=== PATIENT | female | born 1935 | race Caucasian/White ===

== ENCOUNTER 2016-05-27 15:43 | Emergency (ER) | payer MEDICARE, OTHER ==
[~2016-05-27] VITALS: Ht 172.7 cm; Wt 91.0 kg
[~2016-05-27 15:43] MED LIST: ESOM1CAP6 PO; SERT50 PO
[2016-05-27 16:03] VITALS: BP 154/94; PULSE 91; RESP 16; TEMP 97.9; O2SAT 97
[2016-05-27] MEDS ORDERED: SODIUM CHLOR 0.9% 1000 ML INJ 1,000 ML IV SCH ×2 (16:20)
[2016-05-27] MEDS ORDERED: SODIUM CHLORIDE 0.9% FLUSH 5 ML FLUSH IVF PRN (16:30)
[2016-05-27] MEDS ORDERED: ONDANSETRON HCL 4 MG/2 ML VIAL IVP ONE (16:30)
[2016-05-27] MEDS ORDERED: MORPHINE SULFATE 4 MG/ML INJ IV PUSH ONE ×2 (16:30→18:15)
--- NOTE | 2016-05-27 16:35 | PD ---
HPI Chief Complaint: GI Complaint Time Seen by Provider: 16:08 Travel History International Travel<30 days: No Contact w/Intl Traveler<30days: No Traveled to known affect area: No History of Present Illness HPI The patient is a 81-year-old female who presents emergency department for nausea, vomiting, and abdominal pain. The patient states her symptoms started several hours prior to arrival. The patient states she has a history of similar symptoms in the past secondary to small bowel obstructions, secondary to adhesions. Patient has a history of previous abdominal surgeries including removal of ovaries, partial colectomy, and 4 separate surgeries for lysis of adhesions. The patient states her last surgery for lysis of adhesions was in 2010 [facility]. The patient's other previous surgeries were in [place]. The patient does not have a local surgeon. The patient states her last bowel movement was yesterday, small, and irregular. The patient has not passed any gas today. The patient has had several episodes of belching with her nausea and vomiting. Symptoms are moderate, possibly exacerbated by small bowel obstruction, and there are no current alleviating factors. PFSH Past Medical History Arthritis: Yes Asthma: No Autoimmune Disease: No Blood Disorders: No Anxiety: No Depression: Yes Heart Rhythm Problems: No Cancer: Yes (MINOR ON LIP) Cardiovascular Problems: Yes High Cholesterol: Yes Chemotherapy: No Chest Pain: No Congestive Heart Failure: No COPD: No Cerebrovascular Accident: No Diabetes: No Diminished Hearing: No Endocrine: No Gastrointestinal Disorders: Yes (ADHESIONS) GERD: Yes Glaucoma: No Genitourinary: No Headaches: No Hepatitis: No Hiatal Hernia: No Hypertension: Yes Immune Disorder: No Implanted Vascular Access Dvce: Yes Kidney Stones: No Musculoskeletal: Yes Neurologic: No Psychiatric: Yes Reproductive: No Respiratory: Yes Migraines: No Myocardial Infarction: No Radiation Therapy: No Renal Failure: No Seizures: No Sickle Cell Disease: No Sleep Apnea: No Thyroid Disease: No Ulcer: No Past Surgical History Abdominal Surgery: Yes (ADHESIONS REPAIRS X 3 IN 1987,1989 AND 2000) AICD: No Appendectomy: No Arteriovenous Shunt: No Body Medical Devices: LEFT HIP BLADDER STIMULATOR Cardiac Surgery: No Cholecystectomy: No Ear Surgery: No Endocrine Surgery: No Eye Surgery: No Genitourinary Surgery: No Gynecologic Surgery: Yes (HAD FISTUAL REAPIRED IN 2000) Hysterectomy: Yes (1985) Insulin Pump: No Joint Replacement: No Oral Surgery: No Pacemaker: No Thoracic Surgery: No Social History Alcohol Use: Yes (2/ DAY) Tobacco Use: No Substance Use: No Allergies-Medications (Allergen,Severity, Reaction): Coded Allergies: No Known Allergies (Verified , 05/27/16) Reported Meds & Prescriptions Reported Meds & Active Scripts Active Zofran Odt (Ondansetron Odt) 4 Mg Tab 4 Mg SL Q6HR PRN [place] (Hydrocodone-Acetaminophen) 5-325 mg Tab 1 Tab PO Q6H PRN Review of Systems Except as stated in HPI: all other systems reviewed are Neg General / Constitutional: No: Fever Cardiovascular: No: Chest Pain or Discomfort Respiratory: No: Shortness of Breath Gastrointestinal: Positive: Nausea, Vomiting, Abdominal Pain, Changes in Bowel Habits Genitourinary: No: Dysuria Musculoskeletal: No: Weakness Neurologic: No: Weakness Physical Exam Narrative GENERAL: Awake, alert, pleasant 81-year-old female who appears her stated age and is in no acute respiratory distress. SKIN: Warm and dry. HEAD: Atraumatic. Normocephalic. EYES: Pupils equal and round. No scleral icterus. No injection or drainage. ENT: No nasal bleeding or discharge. Slightly dry mucous membranes. NECK: Trachea midline. No JVD. CARDIOVASCULAR: Regular rate and rhythm. No murmur appreciated. Heart rate in the 90s. RESPIRATORY: No accessory muscle use. Clear to auscultation. Breath sounds equal bilaterally. GASTROINTESTINAL: Abdomen soft, diffuse tenderness, no obvious tympany. Well- healed midline surgical scar and lower abdominal transverse scar. MUSCULOSKELETAL: No obvious deformities. No clubbing. No cyanosis. No edema. NEUROLOGICAL: Awake and alert. No obvious cranial nerve deficits. Motor grossly within normal limits. Normal speech. PSYCHIATRIC: Appropriate mood and affect; insight and judgment normal. Data Data Last Documented VS Vital Signs Date Time Temp Pulse Resp B/P Pulse Ox O2 Delivery O2 Flow Rate FiO2 05/27/16 19:20 18 05/27/16 18:48 72 164/76 95 Room Air 05/27/16 16:03 97.9 Orders Complete Blood Count With Diff (05/27/16 16:20) Comprehensive Metabolic Panel (05/27/16 16:20) Lipase (05/27/16 16:20) Lactic Acid (05/27/16 16:20) Urinalysis - C+S If Indicated (05/27/16 16:20) Ct Abd/Pel W/O Iv Contrast (05/27/16 16:20) Iv Access Insert/Monitor (05/27/16 16:20) Ecg Monitoring (05/27/16 16:20) Oximetry (05/27/16 16:20) Morphine Inj (Morphine Inj) (05/27/16 16:30) Ondansetron Inj (Zofran Inj) (05/27/16 16:30) Sodium Chlor 0.9% 1000 Ml Inj (Ns 1000 M (05/27/16 16:20) Sodium Chlor 0.9% 1000 Ml Inj (Ns 1000 M (05/27/16 16:20) Sodium Chloride 0.9% Flush (Ns Flush) (05/27/16 16:30) Morphine Inj (Morphine Inj) (05/27/16 18:15) Ondansetron Inj (Zofran Inj) (05/27/16 18:15) Labs Laboratory Tests Test 05/27/16 05/27/16 16:55 17:25 White Blood Count 9.8 TH/MM3 Red Blood Count 5.10 MIL/MM3 Hemoglobin 14.4 GM/DL Hematocrit 43.7 % Mean Corpuscular Volume 85.7 FL Mean Corpuscular Hemoglobin 28.2 PG Mean Corpuscular Hemoglobin 32.9 % Concent Red Cell Distribution Width 12.8 % Platelet Count 228 TH/MM3 Mean Platelet Volume 9.4 FL Neutrophils (%) (Auto) 79.0 % Lymphocytes (%) (Auto) 13.0 % Monocytes (%) (Auto) 5.4 % Eosinophils (%) (Auto) 1.6 % Basophils (%) (Auto) 1.0 % Neutrophils # (Auto) 7.7 TH/MM3 Lymphocytes # (Auto) 1.3 TH/MM3 Monocytes # (Auto) 0.5 TH/MM3 Eosinophils # (Auto) 0.2 TH/MM3 Basophils # (Auto) 0.1 TH/MM3 CBC Comment DIFF FINAL Differential Comment Sodium Level 142 MEQ/L Potassium Level 4.1 MEQ/L Chloride Level 108 MEQ/L Carbon Dioxide Level 25.1 MEQ/L Anion Gap 9 MEQ/L Blood Urea Nitrogen 18 MG/DL Creatinine 0.94 MG/DL Estimat Glomerular Filtration 57 ML/MIN Rate Random Glucose 104 MG/DL Lactic Acid Level 1.0 mmol/L Calcium Level 9.2 MG/DL Total Bilirubin 0.4 MG/DL Aspartate Amino Transf 15 U/L (AST/SGOT) Alanine Aminotransferase 17 U/L (ALT/SGPT) Alkaline Phosphatase 80 U/L Total Protein 7.6 GM/DL Albumin 3.4 GM/DL Lipase 126 U/L Urine Collection Type CATH Urine Color YELLOW Urine Turbidity SLIGHT Urine pH 6.0 Urine Specific [place] 1.022 Urine Protein TRACE mg/dL Urine Glucose (UA) NEG mg/dL Urine Ketones TRACE mg/dL Urine Occult Blood NEG Urine Nitrite NEG Urine Bilirubin NEG Urine Leukocyte Esterase NEG Urine RBC 0-3 /hpf Urine Squamous Epithelial 0-5 /hpf Cells Urine Transitional Epithelial 0-5 /hpf Cells Urine Amorphous Sediment MOD Microscopic Urinalysis Comment CATH-CULT NOT IND Urine Collection Time 1725 MDM Medical Decision Making Medical Screen Exam Complete: Yes Emergency Medical Condition: Yes Medical Record Reviewed: Yes Interpretation(s) CT of the abdomen and pelvis reveals nonspecific bowel gas pattern. No etiology for patient's nausea and abdominal pain. Laboratory Tests Test 05/27/16 05/27/16 16:55 17:25 White Blood Count 9.8 TH/MM3 Red Blood Count 5.10 MIL/MM3 Hemoglobin 14.4 GM/DL Hematocrit 43.7 % Mean Corpuscular Volume 85.7 FL Mean Corpuscular Hemoglobin 28.2 PG Mean Corpuscular Hemoglobin 32.9 % Concent Red Cell Distribution Width 12.8 % Platelet Count 228 TH/MM3 Mean Platelet Volume 9.4 FL Neutrophils (%) (Auto) 79.0 % Lymphocytes (%) (Auto) 13.0 % Monocytes (%) (Auto) 5.4 % Eosinophils (%) (Auto) 1.6 % Basophils (%) (Auto) 1.0 % Neutrophils # (Auto) 7.7 TH/MM3 Lymphocytes # (Auto) 1.3 TH/MM3 Monocytes # (Auto) 0.5 TH/MM3 Eosinophils # (Auto) 0.2 TH/MM3 Basophils # (Auto) 0.1 TH/MM3 CBC Comment DIFF FINAL Differential Comment Sodium Level 142 MEQ/L Potassium Level 4.1 MEQ/L Chloride Level 108 MEQ/L Carbon Dioxide Level 25.1 MEQ/L Anion Gap 9 MEQ/L Blood Urea Nitrogen 18 MG/DL Creatinine 0.94 MG/DL Estimat Glomerular Filtration 57 ML/MIN Rate Random Glucose 104 MG/DL Lactic Acid Level 1.0 mmol/L Calcium Level 9.2 MG/DL Total Bilirubin 0.4 MG/DL Aspartate Amino Transf 15 U/L (AST/SGOT) Alanine Aminotransferase 17 U/L (ALT/SGPT) Alkaline Phosphatase 80 U/L Total Protein 7.6 GM/DL Albumin 3.4 GM/DL Lipase 126 U/L Urine Collection Type CATH Urine Color YELLOW Urine Turbidity SLIGHT Urine pH 6.0 Urine Specific [place] 1.022 Urine Protein TRACE mg/dL Urine Glucose (UA) NEG mg/dL Urine Ketones TRACE mg/dL Urine Occult Blood NEG Urine Nitrite NEG Urine Bilirubin NEG Urine Leukocyte Esterase NEG Urine RBC 0-3 /hpf Urine Squamous Epithelial 0-5 /hpf Cells Urine Transitional Epithelial 0-5 /hpf Cells Urine Amorphous Sediment MOD Microscopic Urinalysis Comment CATH-CULT NOT IND Urine Collection Time 1725 Differential Diagnosis Differential diagnosis includes small bowel obstruction, gastritis, constipation , ileus, pancreatitis, pyelonephritis, dehydration, adhesions. Narrative Course IV was established, labs are drawn and sent, and the patient was placed on cardiac telemetry monitoring and continuous pulse oximetry monitoring. The patient was administered morphine, Zofran, and IV fluids. CT of the abdomen and pelvis was ordered to evaluate for obstruction. The patient's white count is unremarkable, lactic acid is normal, and UA reveals [address] of the abdomen and pelvis reveals no acute findings, however, does mention possible fibroid uterus. The patient thinks she had a previous hysterectomy. However, I do not believe this is the source of the patient's symptoms. I will have the patient provided a copy of her CT results so she can discuss him on an outpatient basis with her physician and her medical records. The patient has no tachycardia, is mildly hypertensive and continues to have mild pain. Therefore, the patient was administered a second dose of pain medications. I did advise the patient that if her symptoms persist she may need to return if she could be early in the course of a small bowel obstruction, however, there are no air-fluid levels or suggestion of SBO on CT. She is advised to return if symptoms worsen or progress and do not improve in the next 24 hours. Diagnosis Primary Impression: Abdominal pain Qualified Code: R10.84 - Generalized abdominal pain Patient Instructions: General Instructions Additional Instructions: Medications as directed. Follow-up with your primary physician. Return if symptoms worsen or progress. Med/Other Pt SpecificInfo: Prescription(s) given Scripts Ondansetron Odt (Zofran Odt)4 Mg Tab4 Mg SL Q6HR PRN (Nausea/Vomiting) #7 TAB Ref 0 Prov:Campbell Lopez MD 05/27/16 Hydrocodone-Acetaminophen ([place])5-325 mg Tab1 Tab PO Q6H PRN (PAIN) #15 TAB Ref 0 Prov:Campbell Lopez MD 05/27/16 Disposition: 01 DISCHARGE HOME Condition: Stable Campbell Lopez MD May 27, 2016 16:35
--- NOTE | 2016-05-27 16:59 | RADHPO ---
EXAM DATE/TIME: 05/27/2016 16:30 This report includes an Addendum and supersedes previous reports for this exam. [facility] COMPARISON: No previous studies available for comparison. INDICATIONS : Nausea and vomiting with lower abdomen pain today. ORAL CONTRAST: No oral contrast ingested. RADIATION DOSE: 19.29 CTDIvol (mGy) MEDICAL HISTORY : Hypertension. Gastroesophageal reflux disease. SURGICAL HISTORY : Hysterectomy. lysis of adhesions ENCOUNTER: Initial ACUITY: 1 day PAIN SCALE: 7/10 LOCATION: Bilateral lower quadrant TECHNIQUE: Volumetric scanning of the abdomen and pelvis was performed. Using automated exposure control and ad justment of the mA and/or kV according to patient size, radiation dose was kept as low as reasonably achievable to obtain optimal diagnostic quality images. FINDINGS: The lung bases are clear. The heart is unremarkable. The liver is free of focal defects. The gallbl adder appears normal. The spleen, pancreas, adrenals are unremarkable. The right kidney is normal. There is mild prominen ce to the left renal pelvis with peripelvic cyst evident. Region of the cecum and terminal ileum are unremarkable. Fibroid uterus is noted. Evidence for a previous surgery is seen in the sigmoid colon. There is no free air or obstruction. There is no free fluid. Review of bone windows reveals degenerative change s in the lower lumbar spine. Spinal stimulator is evident. CONCLUSION: Non-specific bowel gas pattern. I do not see an etiology for patient's nausea and abdominal pain. Yung Rosado MD FACR on May 27, 2016 at 16:48 Board Certified Radiologist. This report was verified electronically. ADDENDUM: Patient has had hysterectomy. Surgical clips are seen in the pelvis. Yung Rosado MD FACR on May 28, 2016 at 10:41 Board Certified Radiologist. This report was verified electronically.
[2016-05-27 17:04] LABS: AUTOMATED NEUTROPHIL # 7.7 TH/MM3 (1.8-7.7); BASOPHIL # 0.1 TH/MM3 (0-0.2); EOSINOPHIL # 0.2 TH/MM3 (0-0.4); EOSINOPHIL % 1.6 % (0.0-4.0); HEMATOCRIT 43.7 % (35.0-46.0); HEMO FLAGS DIFF FINAL; LYMPHOCYTE # 1.3 TH/MM3 (1.0-4.8); MEAN CELL VOLUME 85.7 FL (80.0-100.0); MEAN CORPUSCULAR HEMOGLOBIN 28.2 PG (27.0-34.0); MEAN CORPUSCULAR HGB CONC 32.9 % (32.0-36.0); MONO % 5.4 % (0.0-8.0); PLATELET COUNT 228 TH/MM3 (150-450); RED CELL DISTRIBUTION WIDTH 12.8 % (11.6-17.2); WHITE BLOOD COUNT 9.8 TH/MM3 (4.0-11.0)
[2016-05-27 17:11] LABS: CHLORIDE 108 MEQ/L (98-107); POTASSIUM 4.1 MEQ/L (3.5-5.1); SODIUM (NA) 142 MEQ/L (136-145)
[2016-05-27 17:15] LABS: ANION GAP 9 MEQ/L (5-15); BICARBONATE 25.1 MEQ/L (21.0-32.0); BLOOD UREA NITROGEN 18 MG/DL (7-18)
[2016-05-27 17:18] LABS: ALT (GPT) 17 U/L (10-53); AST (GOT) 15 U/L (15-37); GLOMERULAR FILTRATION RATE 57 ML/MIN (>89)
[2016-05-27 17:20] LABS: TOTAL BILIRUBIN ADULT 0.4 MG/DL (0.2-1.0)
[2016-05-27 17:21] LABS: ALKALINE PHOSPHATASE 80 U/L (45-117)
[2016-05-27 17:30] VITALS: O2SAT 98
[2016-05-27 17:33] VITALS: BP 187/80; PULSE 72; RESP 20; O2SAT 95
[2016-05-27 17:34] LABS: BLOOD, URINE NEG (NEG); GLUCOSE,URINE NEG (NEG); KETONE, URINE TRACE mg/dL (NEG); NITRITE,URINE NEG (NEG)
[2016-05-27 17:39] LABS: METHOD OF COLLECTION CATH; URINE COLOR YELLOW (YELLW/STRAW)
[2016-05-27 17:40] LABS: COMMENT (UR) CATH-CULT NOT IND; COMMENT2 (UR) MUCOUS PRESENT; CULTURE IF INDICATED CATH CULTURE NOT IND; RBC, URINE 0-3 /hpf (0-3); SQUAMOUS EPITHELIAL CELL URINE 0-5 /hpf (0-5); TRANSITIONAL EPI CELLS, URINE 0-5 /hpf
[2016-05-27] MEDS ORDERED: ZOFR4TAB3 SL (18:11)
[2016-05-27] MEDS ORDERED: NORC5TAB PO (18:11)
[2016-05-27] MEDS ORDERED: ONDANSETRON HCL 4 MG/2 ML VIAL IV PUSH ONE (18:15)
[2016-05-27 18:48] VITALS: BP 164/76; PULSE 72; RESP 20; O2SAT 95
[2016-05-27 19:20] VITALS: RESP 18
== END 2016-05-27 19:36 | disposition home or self-care (01) ==
LOC: PHED 15:43
DX: R10.84 Generalized abdominal pain (principal); R11.2 Nausea with vomiting, unspecified; E78.00 Pure hypercholesterolemia, unspecified; I10 Essential (primary) hypertension
CPT/HCPCS: 74176; 80053; 81001; 83605; 83690; 85025; 96361; 96374; 96375; 96376; 99284; J2270; J2405; J7030

== ENCOUNTER 2016-05-28 01:45 | Observation (INO) | payer MEDICARE, OTHER ==
[~2016-05-28] VITALS: Ht 172.7 cm; Wt 90.9 kg
[2016-05-28] VITALS (13 sets, daily range): BP systolic 125–185; BP diastolic 65–87; PULSE 72–86; RESP 16–20; TEMP 96.9–97.8; O2SAT 93–97
[~2016-05-28 01:45] MED LIST changes: +NORC5TAB PO; +ZOFR4TAB3 SL
[2016-05-28] MEDS ORDERED: SODIUM CHLOR 0.9% 1000 ML INJ 1,000 ML IV SCH (02:16)
[2016-05-28] MEDS ORDERED: SODIUM CHLORIDE 0.9% FLUSH 5 ML FLUSH IVF PRN ×2 (02:30→03:30)
[2016-05-28] MEDS ORDERED: HYDROmorphone HCL PF 1 MG/ML VIAL IV PUSH ONE (02:30)
[2016-05-28] MEDS ORDERED: ONDANSETRON HCL 4 MG/2 ML VIAL IVP ONE (02:30)
[2016-05-28 02:37] LABS: AUTOMATED NEUTROPHIL # 12.7 TH/MM3 (1.8-7.7); BASOPHIL # 0.2 TH/MM3 (0-0.2); BASOPHIL % 1.1 % (0.0-2.0); EOSINOPHIL # 0.1 TH/MM3 (0-0.4); EOSINOPHIL % 0.5 % (0.0-4.0); HEMATOCRIT 44.7 % (35.0-46.0); LYMPH % 7.5 % (9.0-44.0); LYMPHOCYTE # 1.1 TH/MM3 (1.0-4.8); MEAN CELL VOLUME 85.9 FL (80.0-100.0); MEAN CORPUSCULAR HEMOGLOBIN 27.9 PG (27.0-34.0); MEAN CORPUSCULAR HGB CONC 32.5 % (32.0-36.0); MONO % 5.5 % (0.0-8.0); NEUT % 85.4 % (16.0-70.0); PLATELET COUNT 243 TH/MM3 (150-450); RED CELL DISTRIBUTION WIDTH 13.3 % (11.6-17.2); WHITE BLOOD COUNT 14.9 TH/MM3 (4.0-11.0)
[2016-05-28 02:46] LABS: HEMO FLAGS DIFF FINAL
--- NOTE | 2016-05-28 02:49 | PD ---
HPI Chief Complaint: GI Complaint Time Seen by Provider: 02:16 Travel History International Travel<30 days: No Contact w/Intl Traveler<30days: No Traveled to known affect area: No History of Present Illness HPI 81-year-old female presents to the emergency department for complaint of persistent nausea vomiting and abdominal pain. Patient has history of previous admissions for partial small bowel obstruction and ileus. Patient has had abdominal surgery and previous hysterectomy. Patient has been seen earlier on Saturday for same complaint started having symptoms around 1 PM and came to the emergency room around 3 PM. Patient's evaluation at that time revealed normal labs and a CT abdomen and pelvis did not identify any etiology for patient's symptoms. Patient felt improved after IV fluids morphine and Zofran was discharged to home. Patient states after 10 PM started having recurrent symptoms and due to ongoing vomiting returns now for further evaluation. Patient states she had a small bowel movement on Saturday morning but no bowel movement or flatus since. Patient denies dysuria frequency or urgency. Patient has had no fever or chills. Patient's had no hematemesis or coffee- ground emesis. No report of chest pain or shortness of breath. Patient rates pain 7-8/10. PFSH Past Medical History Narrative Medical Small bowel obstruction hysterectomy bladder fistula repair adhesiolysis anxiety depression lip cancer dyslipidemia; no tobacco use; nursing notes reviewed Arthritis: Yes Asthma: No Autoimmune Disease: No Blood Disorders: No Anxiety: No Depression: Yes Heart Rhythm Problems: No Cancer: Yes (MINOR ON LIP) Cardiovascular Problems: Yes High Cholesterol: Yes Chemotherapy: No Chest Pain: No Congestive Heart Failure: No COPD: No Cerebrovascular Accident: No Diabetes: No Diminished Hearing: No Endocrine: No Gastrointestinal Disorders: Yes (ADHESIONS) GERD: Yes Glaucoma: No Genitourinary: No Headaches: No Hepatitis: No Hiatal Hernia: No Hypertension: Yes Immune Disorder: No Implanted Vascular Access Dvce: Yes Kidney Stones: No Musculoskeletal: Yes Neurologic: No Psychiatric: Yes Reproductive: No Respiratory: Yes Migraines: No Myocardial Infarction: No Radiation Therapy: No Renal Failure: No Seizures: No Sickle Cell Disease: No Sleep Apnea: No Thyroid Disease: No Ulcer: No ?: Not Past Surgical History Abdominal Surgery: Yes (ADHESIONS REPAIRS X 3 IN 1987,1989 AND 2000) AICD: No Appendectomy: No Arteriovenous Shunt: No Body Medical Devices: LEFT HIP BLADDER STIMULATOR Cardiac Surgery: No Cholecystectomy: No Ear Surgery: No Endocrine Surgery: No Eye Surgery: No Genitourinary Surgery: No Gynecologic Surgery: Yes (HAD FISTUAL REPAIRED IN 2000) Hysterectomy: Yes (1985) Insulin Pump: No Joint Replacement: No Oral Surgery: No Pacemaker: No Thoracic Surgery: No Other Surgery: Yes Social History Alcohol Use: Yes (2/ DAY) Tobacco Use: No Substance Use: No Allergies-Medications (Allergen,Severity, Reaction): Coded Allergies: No Known Allergies (Verified , 05/27/16) Reported Meds & Prescriptions Reported Meds & Active Scripts Active Zofran Odt (Ondansetron Odt) 4 Mg Tab 4 Mg SL Q6HR PRN [place] (Hydrocodone-Acetaminophen) 5-325 mg Tab 1 Tab PO Q6H PRN Review of Systems Except as stated in HPI: all other systems reviewed are Neg General / Constitutional: No: Fever, Chills Cardiovascular: No: Chest Pain or Discomfort Respiratory: No: Shortness of Breath Gastrointestinal: Positive: Nausea, Vomiting, Abdominal Pain, No: Diarrhea, Hematemesis, Loss of Appetite Genitourinary: No: Decreased Urinary Output Musculoskeletal: No: Pain Neurologic: No: Weakness Endocrine: No: Polyuria Hematologic/Lymphatic: No: Lymph Node Enlargement Physical Exam Narrative GENERAL: Well-developed ill-appearing female in no respiratory distress SKIN: Warm and dry. HEAD: Normocephalic. EYES: No scleral icterus. No injection or drainage. NECK: Supple, trachea midline. No JVD or lymphadenopathy. CARDIOVASCULAR: Regular rate and rhythm without murmurs, gallops, or rubs. RESPIRATORY: Breath sounds equal bilaterally. No accessory muscle use. GASTROINTESTINAL: Abdomen soft, diffusely mildly tender to direct palpation without guarding or rebound, nondistended. MUSCULOSKELETAL: No cyanosis, or edema. BACK: Nontender without obvious deformity. No CVA tenderness. Data Data Last Documented VS Vital Signs Date Time Temp Pulse Resp B/P Pulse Ox O2 Delivery O2 Flow Rate FiO2 05/28/16 02:43 78 18 178/80 94 Room Air 05/28/16 01:56 97.8 Orders Complete Blood Count With Diff (05/28/16 02:16) Lipase (05/28/16 02:16) Lactic Acid (05/28/16 02:16) Abdomen, Flat & Upright (05/28/16 ) Iv Access Insert/Monitor (05/28/16 02:16) Ecg Monitoring (05/28/16 02:16) Oximetry (05/28/16 02:16) Ondansetron Inj (Zofran Inj) (05/28/16 02:30) Sodium Chlor 0.9% 1000 Ml Inj (Ns 1000 M (05/28/16 02:16) Sodium Chloride 0.9% Flush (Ns Flush) (05/28/16 02:30) Hydromorphone Pf Inj (Dilaudid Pf Inj) (05/28/16 02:30) Basic Metabolic Panel (Bmp) (05/28/16 02:16) Labs Laboratory Tests Test 05/28/16 02:30 White Blood Count 14.9 TH/MM3 Red Blood Count 5.20 MIL/MM3 Hemoglobin 14.5 GM/DL Hematocrit 44.7 % Mean Corpuscular Volume 85.9 FL Mean Corpuscular Hemoglobin 27.9 PG Mean Corpuscular Hemoglobin 32.5 % Concent Red Cell Distribution Width 13.3 % Platelet Count 243 TH/MM3 Mean Platelet Volume 9.1 FL Neutrophils (%) (Auto) 85.4 % Lymphocytes (%) (Auto) 7.5 % Monocytes (%) (Auto) 5.5 % Eosinophils (%) (Auto) 0.5 % Basophils (%) (Auto) 1.1 % Neutrophils # (Auto) 12.7 TH/MM3 Lymphocytes # (Auto) 1.1 TH/MM3 Monocytes # (Auto) 0.8 TH/MM3 Eosinophils # (Auto) 0.1 TH/MM3 Basophils # (Auto) 0.2 TH/MM3 CBC Comment DIFF FINAL Differential Comment Sodium Level 141 MEQ/L Potassium Level 4.0 MEQ/L Chloride Level 107 MEQ/L Carbon Dioxide Level 24.4 MEQ/L Anion Gap 10 MEQ/L Blood Urea Nitrogen 17 MG/DL Creatinine 0.80 MG/DL Estimat Glomerular Filtration 69 ML/MIN Rate Random Glucose 162 MG/DL Lactic Acid Level 1.0 mmol/L Calcium Level 9.1 MG/DL Lipase 96 U/L [facility] Medical Decision Making Medical Screen Exam Complete: Yes Emergency Medical Condition: Yes Medical Record Reviewed: Yes Interpretation(s) Laboratory Tests Test 05/28/16 02:30 White Blood Count 14.9 TH/MM3 Red Blood Count 5.20 MIL/MM3 Hemoglobin 14.5 GM/DL Hematocrit 44.7 % Mean Corpuscular Volume 85.9 FL Mean Corpuscular Hemoglobin 27.9 PG Mean Corpuscular Hemoglobin 32.5 % Concent Red Cell Distribution Width 13.3 % Platelet Count 243 TH/MM3 Mean Platelet Volume 9.1 FL Neutrophils (%) (Auto) 85.4 % Lymphocytes (%) (Auto) 7.5 % Monocytes (%) (Auto) 5.5 % Eosinophils (%) (Auto) 0.5 % Basophils (%) (Auto) 1.1 % Neutrophils # (Auto) 12.7 TH/MM3 Lymphocytes # (Auto) 1.1 TH/MM3 Monocytes # (Auto) 0.8 TH/MM3 Eosinophils # (Auto) 0.1 TH/MM3 Basophils # (Auto) 0.2 TH/MM3 CBC Comment DIFF FINAL Differential Comment Sodium Level 141 MEQ/L Potassium Level 4.0 MEQ/L Chloride Level 107 MEQ/L Carbon Dioxide Level 24.4 MEQ/L Anion Gap 10 MEQ/L Blood Urea Nitrogen 17 MG/DL Creatinine 0.80 MG/DL Estimat Glomerular Filtration 69 ML/MIN Rate Random Glucose 162 MG/DL Lactic Acid Level 1.0 mmol/L Calcium Level 9.1 MG/DL Lipase 96 U/L Differential Diagnosis Vomiting, ileus, bowel obstruction, ischemic colitis, atypical chest pain, ACS Narrative Course IV access obtained specimens collected and sent for resulting; patient administered Zofran 4 mg IV Dilaudid 0.5 mg IV and maintenance normal saline; review of medical records indicates CT identified no bowel obstruction and no clear indication for patient's presentation/symptoms left values are all in normal range as tested. @3:28 patient is clinically improved however continues to have some abdominal pain and nausea after Zofran and Dilaudid; patient receiving maintenance fluid; in view of patient's white count increasing ongoing vomiting at home return to the emergency department for same problem was worsening lab values within less than [address]. [address] patient in observation status for vomiting ileus with history of partial small bowel obstruction in the past along with dehydration. Patient is aware of plan for observation admission with which she is agreeable; patient's case has been discussed with on-call medicine physician Physician Communication Physician Communication discussed with Dr Parker--obs Diagnosis Primary Impression: Vomiting Qualified Code: R11.2 - Intractable vomiting with nausea, unspecified vomiting type Additional Impression: Ileus Admitting Information Admitting Physician Requests: Observation Parul Brown MD May 28, 2016 02:49
[2016-05-28 02:51] LABS: BICARBONATE 24.4 MEQ/L (21.0-32.0)
[2016-05-28] MEDS ORDERED: SODIUM CHLORIDE 0.9% FLUSH 5 ML FLUSH FLUSH PRN (03:30)
[2016-05-28] MEDS ORDERED: MORPHINE SULFATE 4 MG/ML INJ IV PRN (03:30)
[2016-05-28] MEDS ORDERED: ONDANSETRON HCL 4 MG/2 ML VIAL IVP PRN (03:30)
[2016-05-28] MEDS ORDERED: BISACODYL 10 MG SUPP PR PRN (03:30)
[2016-05-28] MEDS ORDERED: ACETAMINOPHEN 325 MG TAB PO PRN (03:30)
[2016-05-28] MEDS: CIPROFLOXACIN 400 MG PREMIX 200 ML IV SCH ×2 (04:15→17:24)
[2016-05-28] MEDS: SODIUM CHLOR 0.9% 1000 ML INJ 1,000 ML IV SCH ×3 (04:15→23:53)
--- NOTE | 2016-05-28 05:15 | RADHPO ---
EXAM DATE/TIME: 05/28/2016 02:49 [facility] COMPARISON: No previous studies available for comparison. INDICATIONS : Nausea, vomiting, abdomial pain MEDICAL HISTORY : Venous insufficiency. Unknown SURGICAL HISTORY : Tems unit ENCOUNTER: Initial ACUITY: 1 day PAIN SCORE: 5/10 LOCATION: Bilateral abdomen FINDINGS: Air is present occasional nondilated small bowel loops. Gas and stool are present in the colon. A sti mulator lead of some type overlies the left pelvis. There are pelvic phleboliths. No suspicious calci fic densities. Degenerative changes in the hips and lower lumbar spine. CONCLUSION: Nonspecific, benign abdomen appearance. Pipo Gerard MD on May 28, 2016 at 5:13 Board Certified Radiologist. This report was verified electronically.
[2016-05-28] MEDS: ACETAMINOPHEN/HYDROcodone 325 MG/5 MG TAB PO PRN ×3 (05:58→21:13)
[2016-05-28] MEDS: metroNIDAZOLE 500 MG INJ 100 ML IV SCH ×3 (05:59→21:09)
[2016-05-28] MEDS: SODIUM CHLORIDE 0.9% FLUSH 5 ML FLUSH FLUSH SCH ×2 (07:35→21:00)
[2016-05-28] MEDS ORDERED: SODIUM CHLORIDE 0.9% FLUSH 5 ML FLUSH IVF SCH (09:00)
[2016-05-28] MEDS ORDERED: BISACODYL EC 5 MG TABEC PO ONE (10:15)
--- NOTE | 2016-05-28 10:20 | HHI.HP ---
[facility] Ethan Harris MD Admission Diagnosis vomiting; ileus h/o partial SBO Diagnoses: Chief Complaint: Abdominal pain Travel History International Travel<30 Days: No Contact w/Intl Traveler <30 Da: No Traveled to Known Affected Are: No History of Present Illness Patient is a 81-year-old female with recurrent adhesions and abdominal discomfort for multiple episodes of obstruction ileus. Patient presented to the emergency room yesterday with increased nausea and vomiting for about a day. Patient says is very similar to previous episodes of blockages. Pain was 10 out of 10 and was leads to 0 out of 10 with Morphine. Reports nonbloody emesis, no fever, no chills. On my review there is a lot of stool. These reasons the patient will remain in observation for improvement of abdominal symptoms Review of Systems Constitutional: DENIES: Diaphoretic episodes, Fatigue, Fever, Weight gain, Weight loss, Chills, Dizziness, Change in appetite, Night Sweats Endocrine: DENIES: Abnorml menstrual pattern, Heat/cold intolerance, Polydipsia , Polyuria, Polyphagia Eyes: DENIES: Blurred vision, Diplopia, Eye inflammation, Eye pain, Vision loss , Photosensitivity, Double Vision Ears, nose, mouth, throat: DENIES: Tinnitus, Hearing loss, Vertigo, Nasal discharge, Oral lesions, Throat pain, Hoarseness, Ear Pain, Running Nose, Epistaxis, Sinus Pain, Toothache, Odynophagia Respiratory: DENIES: Apneas, Cough, Snoring, Wheezing, Hemoptysis, Sputum production, Shortness of breath Cardiovascular: DENIES: Chest pain, Palpitations, Syncope, Dyspnea on Exertion , PND, Lower Extremity Edema, Orthopnea, Claudication Gastrointestinal: COMPLAINS OF: Abdominal pain, Nausea, Vomiting Genitourinary: DENIES: Abnormal vaginal bleeding, Dysmenorrhea, Dyspareunia, Sexual dysfunction, Urinary frequency, Urinary incontinence, Urgency, Hematuria , Dysuria, Nocturia, Vaginal discharge Musculoskeletal: DENIES: Joint pain, Muscle aches, Stiffness, Joint Swelling, Back pain, Neck pain Integumentary: DENIES: Abnormal pigmentation, Pruritus, Rash, Nail changes, Breast masses, Breast skin changes, Nipple discharge Hematologic/lymphatic: DENIES: Bruising, Lymphadenopathy Immunologic/allergic: DENIES: Eczema, Urticaria Neurologic: DENIES: Abnormal gait, Headache, Localized weakness, Paresthesias, Seizures, Speech Problems, Tremor, Poor Balance Psychiatric: DENIES: Anxiety, Confusion, Mood changes, Depression, Hallucinations, Agitation, Suicidal Ideation, Homicidal Ideation, Delusions Past Family Social History Past Medical History Recurrent ileus and obstruction with a history of adhesions and multiple abdominal procedures for the same Chronic narcotic dependency Past Surgical History Multiple abdominal surgeries for lysis of adhesions Hysterectomy Reported Medications Reviewed in the medical record, no new medicines per patient Allergies: Coded Allergies: No Known Allergies (Verified , 05/27/16) Active Ordered Medications Reviewed in the medical record Family History No family history of inflammatory bowel per patient Social History No tobacco, , drink alcohol daily Physical Exam Vital Signs Vital Signs Date Time Temp Pulse Resp B/P Pulse Ox O2 Delivery O2 Flow Rate FiO2 05/28/16 08:00 97.6 72 18 125/70 97 05/28/16 05:20 85 05/28/16 04:55 96 21 05/28/16 04:33 80 16 133/81 95 Room Air 05/28/16 04:11 72 16 146/65 93 Room Air 05/28/16 02:43 78 18 178/80 94 Room Air 05/28/16 02:33 74 18 185/85 94 Room Air 05/28/16 02:02 05/28/16 01:56 97.8 86 20 164/87 94 Physical Exam GENERAL: This is a well-nourished, well-developed patient, in no apparent distress. SKIN: No rashes, ecchymoses or lesions. Cool and dry. HEAD: Atraumatic. Normocephalic. No temporal or scalp tenderness. EYES: Pupils equal round and reactive. Extraocular motions intact. No scleral icterus. No injection or drainage. ENT: Nose without bleeding, purulent drainage or septal hematoma. Throat without erythema, tonsillar hypertrophy or exudate. Uvula midline. Airway patent. NECK: Trachea midline. No JVD or lymphadenopathy. Supple, nontender, no meningeal signs. CARDIOVASCULAR: Regular rate and rhythm without murmurs, gallops, or rubs. RESPIRATORY: Clear to auscultation. Breath sounds equal bilaterally. No wheezes , rales, or rhonchi. GASTROINTESTINAL: Abdomen soft, nontender, nondistended, hypoactive bowel sounds no hepato-splenomegaly, or palpable masses. No guarding. MUSCULOSKELETAL: Extremities without clubbing, cyanosis, or edema. No joint tenderness, effusion, or edema noted. No calf tenderness. Negative Homans sign bilaterally. NEUROLOGICAL: Awake and alert. Cranial nerves II through XII intact. Motor and sensory grossly within normal limits. Five out of 5 muscle strength in all muscle groups. Normal speech. Laboratory Laboratory Tests Test 05/28/16 02:30 White Blood Count 14.9 Red Blood Count 5.20 Hemoglobin 14.5 Hematocrit 44.7 Mean Corpuscular Volume 85.9 Mean Corpuscular Hemoglobin 27.9 Mean Corpuscular Hemoglobin 32.5 Concent Red Cell Distribution Width 13.3 Platelet Count 243 Mean Platelet Volume 9.1 Neutrophils (%) (Auto) 85.4 Lymphocytes (%) (Auto) 7.5 Monocytes (%) (Auto) 5.5 Eosinophils (%) (Auto) 0.5 Basophils (%) (Auto) 1.1 Neutrophils # (Auto) 12.7 Lymphocytes # (Auto) 1.1 Monocytes # (Auto) 0.8 Eosinophils # (Auto) 0.1 Basophils # (Auto) 0.2 CBC Comment DIFF FINAL Differential Comment Sodium Level 141 Potassium Level 4.0 Chloride Level 107 Carbon Dioxide Level 24.4 Anion Gap 10 Blood Urea Nitrogen 17 Creatinine 0.80 Estimat Glomerular Filtration 69 Rate Random Glucose 162 Lactic Acid Level 1.0 Calcium Level 9.1 Lipase 96 Result Diagram: 05/28/16 0230 05/28/16 0230 Imaging Last Impressions Abdomen X-Ray 05/28/16 0000 Signed Impressions: Service Date/Time: Saturday, May 28, 2016 02:49 - CONCLUSION: Nonspecific, benign abdomen appearance. Pipo Gerard MD Assessment and Plan Problem List: (1) Abdominal pain ICD Code: R10.9 Status: Acute Plan: Patient with a lot of stool in the colon on Xray; add bowel reg Continue Flagyl/Cipro NPO except ice CT abdomen pelvis from 05/27 reviewed. I do not see uterus. We'll discuss with radiology to clarify Assessment and Plan Plan of care to be determined by Hospital course Code Status Full code Discussed Condition With Patient, radiology Aislinn Dominguez MD May 28, 2016 10:20
[2016-05-28] MEDS: POLYETHYLENE GLYCOL 17 GM PKG PO SCH (10:42)
[2016-05-28] MEDS ORDERED: SOD PHOSPHATE/SOD BIPHOSPHATE (ADULT) ENEMA 133ML PR ONE (20:00)
[2016-05-29] VITALS: BP 140/68; PULSE 82; RESP 20; TEMP 96.7; O2SAT 95
[2016-05-29 04:00] VITALS: BP 142/62; PULSE 72; RESP 20; TEMP 96; O2SAT 98
[2016-05-29] MEDS: CIPROFLOXACIN 400 MG PREMIX 200 ML IV SCH (05:19)
[2016-05-29] MEDS: metroNIDAZOLE 500 MG INJ 100 ML IV SCH (05:21)
[2016-05-29 06:10] LABS: BASOPHIL % 0.4 % (0.0-2.0); EOSINOPHIL # 0.2 TH/MM3 (0-0.4); EOSINOPHIL % 2.1 % (0.0-4.0); HEMATOCRIT 40.6 % (35.0-46.0); HEMO FLAGS DIFF FINAL; LYMPH % 14.8 % (9.0-44.0); LYMPHOCYTE # 1.3 TH/MM3 (1.0-4.8); MEAN CELL VOLUME 85.9 FL (80.0-100.0); MEAN CORPUSCULAR HEMOGLOBIN 28.3 PG (27.0-34.0); MEAN CORPUSCULAR HGB CONC 32.9 % (32.0-36.0); MONO % 6.2 % (0.0-8.0); NEUT % 76.5 % (16.0-70.0); PLATELET COUNT 209 TH/MM3 (150-450); RED BLOOD COUNT 4.73 MIL/MM3 (4.00-5.30); RED CELL DISTRIBUTION WIDTH 12.7 % (11.6-17.2); WHITE BLOOD COUNT 9.1 TH/MM3 (4.0-11.0)
[2016-05-29 06:28] LABS: CHLORIDE 106 MEQ/L (98-107); POTASSIUM 3.3 MEQ/L (3.5-5.1); SODIUM (NA) 141 MEQ/L (136-145)
[2016-05-29 06:31] LABS: ANION GAP 9 MEQ/L (5-15); BICARBONATE 25.7 MEQ/L (21.0-32.0); BLOOD UREA NITROGEN 11 MG/DL (7-18)
[2016-05-29 06:34] LABS: ALT (GPT) 14 U/L (10-53); AST (GOT) 16 U/L (15-37)
[2016-05-29 06:35] LABS: GLOMERULAR FILTRATION RATE 76 ML/MIN (>89)
[2016-05-29 06:36] LABS: TOTAL BILIRUBIN ADULT 0.5 MG/DL (0.2-1.0)
[2016-05-29 06:37] LABS: ALKALINE PHOSPHATASE 69 U/L (45-117)
[2016-05-29 08:00] VITALS: BP 135/73; PULSE 68; RESP 16; TEMP 97.3; O2SAT 98
[2016-05-29] MEDS: SODIUM CHLOR 0.9% 1000 ML INJ 1,000 ML IV SCH (09:00)
[2016-05-29] MEDS: POLYETHYLENE GLYCOL 17 GM PKG PO SCH (09:00)
[2016-05-29] MEDS: SODIUM CHLORIDE 0.9% FLUSH 5 ML FLUSH FLUSH SCH (10:04)
[2016-05-29] MEDS ORDERED: POLY17S PO (10:40)
--- NOTE | 2016-05-29 10:40 | HHI.DCPOC ---
Discharge Care Plan Diagnosis: (1) Ileus Goals to Promote Your Health * To prevent worsening of your condition and complications * To maintain your health at the optimal level Directions to Meet Your Goals Take your medications as prescribed Follow your dietary instruction Follow activity as directed Keep your appointments as scheduled Take your immunizations and boosters as scheduled If your symptoms worsen call your PCP, if no PCP go to Urgent Care Center or Emergency Room Smoking is Dangerous to Your Health. Avoid second hand smoke Call the 24-hour hour crisis hotline for domestic abuse at Aislinn Dominguez MD May 29, 2016 10:40
--- NOTE | 2016-05-29 10:47 | HHI.DS ---
Discharge Summary Admission Date May 28, 2016 at 03:28 Discharge Date: May 29, 2016 Admitting Diagnosis vomiting; ileus h/o partial SBO (1) Abdominal pain ICD Code: R10.9 Procedures none Brief History - From Admission Patient is a 81-year-old female with recurrent adhesions and abdominal discomfort for multiple episodes of obstruction ileus. Patient presented to the emergency room yesterday with increased nausea and vomiting for about a day. Patient says is very similar to previous episodes of blockages. Pain was 10 out of 10 and was leads to 0 out of 10 with Morphine. Reports nonbloody emesis, no fever, no chills. On my review there is a lot of stool. These reasons the patient will remain in observation for improvement of abdominal symptoms CBC/BMP: 05/29/16 0519 05/29/16 0519 Significant Findings Laboratory Tests Test 05/28/16 05/29/16 02:30 05:19 White Blood Count 14.9 TH/MM3 (4.0-11.0) Neutrophils (%) (Auto) 85.4 % 76.5 % (16.0-70.0) (16.0-70.0) Lymphocytes (%) (Auto) 7.5 % (9.0-44.0) Neutrophils # (Auto) 12.7 TH/MM3 (1.8-7.7) Estimat Glomerular Filtration 69 ML/MIN (>89) 76 ML/MIN (>89) Rate Random Glucose 162 MG/DL (74-106) Potassium Level 3.3 MEQ/L (3.5-5.1) Calcium Level 8.4 MG/DL (8.5-10.1) Albumin 3.0 GM/DL (3.4-5.0) Imaging Last Impressions Abdomen X-Ray 05/28/16 0000 Signed Impressions: Service Date/Time: Saturday, May 28, 2016 02:49 - CONCLUSION: Nonspecific, benign abdomen appearance. Pipo Gerard MD PE at Discharge GENERAL: This is a well-nourished, well-developed patient, in no apparent distress. CARDIOVASCULAR: Regular rate and rhythm without murmurs, gallops, or rubs. RESPIRATORY: Clear to auscultation. Breath sounds equal bilaterally. No wheezes , rales, or rhonchi. GASTROINTESTINAL: Abdomen soft, non-tender, nondistended. Normal active bowel sounds MUSCULOSKELETAL: Extremities without clubbing, cyanosis, or edema. NEURO: Alert & Oriented x4 to person, place, time, situation. Moves all ext x4 Pt update on day of discharge Seen today in follow-up for ileus which is resolved. Patient will be discharged home today she is agreeable Hospital Course This patient's 81-year-old female with recurrent obstruction and multiple surgeries for adhesions. She did come in with abdominal pain with no evidence of obstruction however she was quite constipated. She did well with the bowel regimen and had quite a few satisfactory bowel movements. She was advised to continue her bowel regimen at home. Pt Condition on Discharge: Good Discharge Disposition: Discharge Home Discharge Time: > 30 minutes Discharge Instructions DIET: Follow Instructions for: As Tolerated, No Restrictions Activities you can perform: Regular-No Restrictions Follow up Referrals: PCP Follow-up - 1 Week New Medications: Polyethylene Glycol 3350 Powder (Polyethylene Glycol 3350 Powder) 17 Gm Pow 17 GM PO DAILY Constipation #31 BOX Continued Medications: Hydrocodone-Acetaminophen ([place]) 5-325 mg Tab 1 TAB PO Q6H PRN PAIN #15 Ref 0 TAB Ondansetron Odt (Zofran Odt) 4 Mg Tab 4 MG SL Q6HR PRN Nausea/Vomiting #7 Ref 0 TAB Aislinn Dominguez MD May 29, 2016 10:46
[2016-05-29] MEDS ORDERED: POTASSIUM CHLORIDE 20 MEQ PWD PACKET PO ONE (11:00)
== END 2016-05-29 12:50 | disposition home or self-care (01) ==
LOC: PHED 01:45 → PHEDA 03:28 → PH3A 04:41
PROVIDERS: ADMIT Hospitalist; ATTEND Hospitalist
DX: K56.7 Ileus, unspecified (principal); R11.2 Nausea with vomiting, unspecified; R10.9 Unspecified abdominal pain; I10 Essential (primary) hypertension; K21.9 Gastro-esophageal reflux disease without esophagitis; E78.00 Pure hypercholesterolemia, unspecified
CPT/HCPCS: 74020; 80048; 80053; 83605; 83690; 85025; G0378; J0744; J1170; J2405; J7030; 96361; 96374; 96375